=== PATIENT | female | born 1965 | race Caucasian/White ===

== ENCOUNTER 2019-06-18 08:27 | Day surgery (SDC) | payer BC ==
[2019-06-18] MEDS: Sodium Chloride 0.9% 1,000 ML IV SCH ×2 (08:50→17:39)
[2019-06-18] MEDS ORDERED: Propofol 200 MG/20 ML SDV ONE (10:50)
[2019-06-18 12:12] VITALS: BP 132/75; PULSE 102
--- NOTE | 2019-06-18 12:52 | OR ---
DATE OF OPERATION: 06/18/2019 SURGEON: Theron Triplett MD PREOPERATIVE DIAGNOSES: Abdominal pain and gastroesophageal reflux disease. POSTOPERATIVE DIAGNOSES: Abdominal pain and gastroesophageal reflux disease. PROCEDURE: EGD with biopsy. ANESTHESIA: MAC. ESTIMATED BLOOD LOSS: Minimal. COMPLICATIONS: None. INDICATION FOR THE PROCEDURE: The patient is a 54-year-old female with longstanding history of GERD. She has been well controlled on pantoprazole. She recently started new medication, Victoza, and has had increased abdominal symptoms including pain and reflux since that time. She previously had EGD about 3 years ago and did have ulcers apparently at that time. She is here today for EGD. DESCRIPTION OF PROCEDURE: Informed consent was obtained from the patient. The patient was taken to the operating room and placed on the table in left lateral decubitus position. Monitored anesthesia care was administered. The esophagogastroscope was then advanced through the mouth and directed toward the duodenum. Second portion of the duodenum was reached and was normal. Gastric antrum also appeared to be normal. No signs of inflammation or ulcers. Random cold forceps biopsy taken from the gastric antrum to check for H pylori. Retroflexion performed in the stomach was also otherwise unremarkable. The gastroscope was then slowly withdrawn. May be a possible small hiatal hernia, however, nothing significant. Scope was then slowly withdrawn the rest of the way through the esophagus. No signs of reflux or inflammation in the esophagus at all. The scope was then withdrawn. FINDINGS: Normal EGD. RECOMMENDATIONS: We will follow up on biopsies for H pylori. Otherwise, we would recommend to continue pantoprazole. If everything else is otherwise normal, may consider Carafate. I also discussed potentially stopping Victoza as this may be causing some medication reaction. TIFFANIE/BLOSSOM /[id number]
== END 2019-06-18 13:05 | disposition home or self-care (01) ==
LOC: LB.SDS 08:27
PROVIDERS: ATTEND Surgery
DX: K21.9 Gastro-esophageal reflux disease without esophagitis (principal)
CPT/HCPCS: 43239; 88305; J2704; J7030; 43246; 88342

== ENCOUNTER 2021-06-15 08:31 | Day surgery (SDC) | payer BC ==
[~2021-06-15 08:31] MED LIST: Metoclopramide 10 MG/2 ML SDV IV PRN; Sodium Chloride 0.9% 1,000 ML IV SCH
[2021-06-15] MEDS ORDERED: Glycopyrrolate 0.2 MG/ML 2 ML SDV ONE (10:10)
[2021-06-15] MEDS ORDERED: Propofol 1,000 MG/100 ML SDV ONE (10:10)
[2021-06-15 10:27] VITALS: BP 144/87; PULSE 88
--- NOTE | 2021-06-15 11:02 | OR ---
DATE OF OPERATION: 06/15/2021 SURGEON: Theron Triplett MD PREOPERATIVE DIAGNOSIS: Surveillance colonoscopy. POSTOPERATIVE DIAGNOSIS: Surveillance colonoscopy. PROCEDURE: Colonoscopy. ANESTHESIA: MAC. ESTIMATED BLOOD LOSS: None. COMPLICATIONS: None. INDICATION FOR THE PROCEDURE: The patient is a 56-year-old female, here today for colonoscopy. Last colonoscopy was about 5 years ago. Did have some polyps per the patient. Otherwise, denies any change in bowel habits since that time. She is brought to the OR today for surveillance colonoscopy. DESCRIPTION OF PROCEDURE: Informed consent was obtained from the patient. The patient was taken to the operating room, placed on the table in left lateral decubitus position. Monitored anesthesia care was administered. Digital rectal exam performed, was normal. Colonoscope was then advanced through the anus, directed towards the cecum. Cecum was reached and identified by appendiceal orifice and ileocecal valve. Colonoscope was then slowly withdrawn. No polyps, no masses. No areas of ischemia or inflammation identified. Did have a few small diverticula in the descending and sigmoid colon. Rectum was also otherwise unremarkable. Colonoscope was then withdrawn. FINDINGS: Minimal sigmoid and descending diverticulosis. RECOMMENDATIONS: We would recommend repeat surveillance colonoscopy in 5 years. TIFFANIE/BLOSSOM /[id number]
== END 2021-06-15 11:15 | disposition home or self-care (01) ==
LOC: LB.SDS 08:31
PROVIDERS: ATTEND Surgery
DX: Z12.11 Encounter for screening for malignant neoplasm of colon (principal); K57.30 Diverticulosis of large intestine without perforation or abscess without bleeding; E11.9 Type 2 diabetes mellitus without complications; Z86.010 Personal history of colon polyps
CPT/HCPCS: 45378; 82947; J2704; J3490; J7030

== ENCOUNTER 2021-10-07 11:34 | Emergency (ER) | payer BC ==
[2021-10-07] MEDS: Ondansetron 4 MG Tab.DIS PO ONE (12:16)
[2021-10-07] MEDS ORDERED: Ondansetron 4 MG Tab.DIS ONE (12:30)
== END 2021-10-07 13:00 | disposition home or self-care (01) ==
LOC: LB.ED 11:34
DX: S06.0X0A Concussion without loss of consciousness, initial encounter (principal); K21.9 Gastro-esophageal reflux disease without esophagitis; I10 Essential (primary) hypertension; E11.9 Type 2 diabetes mellitus without complications; Z88.1 Allergy status to other antibiotic agents; Z79.82 Long term (current) use of aspirin; Z79.4 Long term (current) use of insulin; W00.9XXA Unspecified fall due to ice and snow, initial encounter
CPT/HCPCS: 70450; 99283; 99283-25; Q0162

== ENCOUNTER 2023-11-26 16:19 | Emergency (ER) | payer BC ==
[2023-11-26 18:24] LABS: INFLUENZA A NAA NEGATIVE (NEGATIVE); INFLUENZA B NAA NEGATIVE (NEGATIVE); RESPIRATORY SYNCYTIAL VIR NAA NEGATIVE (NEGATIVE)
[2023-11-26 18:25] LABS: CORONAVIRUS COVID-19 NAA NEGATIVE (NEGATIVE)
[2023-11-26] MEDS ORDERED: Amoxicillin 500 MG Cap ONE ×2 (18:28→18:30)
[2023-11-26] MEDS: Amoxicillin 500 MG Cap PO SCH (18:31)
[2023-11-26 18:40] VITALS: BP 134/71; PULSE 90
== END 2023-11-26 18:45 | disposition home or self-care (01) ==
LOC: LB.ED 16:19
DX: J01.00 Acute maxillary sinusitis, unspecified (principal); H65.02 Acute serous otitis media, left ear; I10 Essential (primary) hypertension; M19.90 Unspecified osteoarthritis, unspecified site; K21.9 Gastro-esophageal reflux disease without esophagitis; E11.9 Type 2 diabetes mellitus without complications; Z88.1 Allergy status to other antibiotic agents; Z88.2 Allergy status to sulfonamides; Z79.4 Long term (current) use of insulin; Z79.82 Long term (current) use of aspirin; Z79.899 Other long term (current) drug therapy; Z90.710 Acquired absence of both cervix and uterus
CPT/HCPCS: 0241U; 87430; 99283; 99284; A9270-GY